=== PATIENT | male | born 1960 | race Caucasian/White ===

== ENCOUNTER 2017-02-15 20:05 | Emergency (ER) | payer MEDICARE, OTHER ==
[~2017-02-15] VITALS: Ht 180.3 cm; Wt 160.0 kg
--- NOTE | ~2017-02-15 | CR172 ---
[facility] A Service of [facility] RADIOLOGY TEXT RESULTS PATIENT: KRISTINE MARSH LOCATION: SED : 56 UNIT #: [id number] AGE: [address]: Antonino Lao MD SEX: M ORDER DR: [id number] [place] [id number] E MR#: [id number] Acc #: [id number] NAME: KRISTINE MARSH : 1960 SEX: M STUDY DATE/TIME: 02/15/2017 20:57 UNIT: SED ROOM: STUDY DESCRIPTION: CR Knee 3 Views Lt Attending Physician: Antonino Lao M.D. Ordering Physician: Antonino Lao M.D. Primary Care Physician: [facility], [facility]. MEDICAL IMAGING REPORT This report is preliminary unless electronic signature is present. EXAM Left knee, 3 views COMPARISON None INDICATIONS 56-year-old male left knee pain for 3 weeks. No known injury. FINDINGS There is a moderate suprapatellar effusion. There is a fabella, normal anatomic variant. There is mild patellar osteophyte formation. There is enthesopathy at the patella and the tibial tubercle. There are mild marginal osteophytes of the lateral compartment of the knee and there are femoral notch and tibial spine osteophytes. IMPRESSION 1. No acute fracture or dislocation of the left knee. Moderate suprapatellar effusion. 2. Mild bicompartmental osteoarthritis. 3. Enthesopathy of the patella and tibial tubercle. Dictated by... Fabian Malhotra M.D. THIS IS AN ELECTRONICALLY VERIFIED REPORT Fabian Malhotra M.D. at 02/20/2017 7:59 AM RODRIGO/carlos alberto TD: 02/16/2017 03:40 JOB #: [id number] [facility] A Service of [facility] RADIOLOGY TEXT RESULTS PATIENT: KRISTINE MARSH LOCATION: SED : 56 UNIT #: [id number] AGE: [address]: Antonino Lao MD SEX: M ORDER DR: MEDICAL IMAGING REPORT Page 1 of 1
[~2017-02-15 20:05] MED LIST: ALL DAY ALLERGY10 MG PO; ASPIRIN325 M1 PO; AUGMENTIN PO; AURALGAN EAR DR14 ML OT; BENAZEPRIL HCL10 MG PO; ECOTRIN325 MG PO; FISH OIL CONCET1 CAP PO; FLEXERIL10 MG PO; FLOMAX0.4 M1 DOB; FLOMAX0.4 M1 PO; HYDROCODON-ACE1 EAC5 PO; HYDROXYZINE HCL25 M1 DOB; HYDROXYZINE HCL25 M1 PO; IMDUR-ER60 M1 PO; IMDUR-ER60 MG DOB; KCL PO; LASIX PO; LIPITOR80 MG PO; LOPRESSOR PO; LYRICA75 MG PO; METOPROLOL TART25 MG PO; NAPROXEN375 M1 PO; NEXIUM PO; NITROGLYCERIN0.4 MG SL; NITROGLYGERIN0.4 MG; PERCOCET 10/3251 TAB PO; POTASSIUM CHLO10 MEQ PO; ZYRTEC10 M2 PO
== END 2017-02-15 22:57 | disposition home or self-care (01) ==
LOC: SED 20:05
DX: S83.92XA Sprain of unspecified site of left knee, initial encounter (principal); M54.9 Dorsalgia, unspecified; G89.29 Other chronic pain; I10 Essential (primary) hypertension; Z88.2 Allergy status to sulfonamides; Z91.041 Radiographic dye allergy status; X58.XXXA Exposure to other specified factors, initial encounter; Y92.9 Unspecified place or not applicable
CPT/HCPCS: 29530; 73562; 99283